=== PATIENT | female | born 1965 | race Caucasian/White ===

== ENCOUNTER 2017-08-31 11:44 | Day surgery (SDC) | payer BC ==
--- NOTE | 2017-08-31 09:52 | HP ---
DATE OF SURGERY: 08/31/2017 HISTORY OF PRESENT ILLNESS: The patient is a 52 year-old who has inflammation and pain right breast. Mammogram with suspicious density. Ultrasound question whether she had lipoma or other nodule. PAST MEDICAL HISTORY: Hypertension. 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 PAST SURGICAL HISTORY: Tubal and hysterectomy in the past. MEDICATIONS: Sertraline, atorvastatin, lamotrigine, clonazepam, lisinopril, cholesterol medication. ALLERGIES: NKDA. FAMILY HISTORY: Mom with breast cancer that started as a simple rash and aches that was quite aggressive according to the patient. Hypertension, breast cancer. SOCIAL HISTORY: No smoking or alcohol abuse. REVIEW OF SYSTEMS: Twelve systems reviewed per admission assessment. No chest pain or palpitations other systems negative or noncontributory as above and per preadmission questionnaire. PHYSICAL EXAMINATION: GENERAL: No acute distress. HEENT: Sclerae nonicteric. NECK: No JVD. CHEST: Equal excursion, nonlabored breathing. CVS: Regular rate and rhythm. ABDOMEN: Soft. No peritoneal signs. EXTREMITIES: No significant edema. NEURO: Alert, moving extremities symmetrically. No gross motor deficits noted. BREAST: Ultrasound at 2:00 position question whether was a 1 mm lipoma or density. IMPRESSION: Painful persistent right breast nodule of unclear etiology. Mammogram did not show any calcification or spiculated areas. Given the persistent palpable painful nodule and the patient's history of mother with very aggressive breast cancer and the patient is quite concerned and desires excisional biopsy for definitive path. She is having pain question whether simple lipoma removal could improve her aches and pains. Risks and benefits explained in detail including but not limited to bleeding or infection, risk of hematoma or seroma formation or infection possibly requiring packing; risk of aches, pains, burning or numbness. Risk of contour changes of the breast, risk of nipple areolar ischemia possibly requiring other procedures, risks of aches and pains, general risk of anesthesia, deep venous thrombosis, pulmonary embolism, pneumonia. She understands should this be malignant tissue she could have other procedures. She understands. Persistent painful solid nodule. I feel she would benefit from excisional biopsy but not limited to. She prefers this rather than consider prior needle biopsy.
[2017-08-31] MEDS ORDERED: DIPRIVAN 200 MG/20 ML IV ONE (11:45)
[2017-08-31] MEDS ORDERED: SUBLIMAZE 100 MCG/2 ML IV ONE (11:45)
[2017-08-31] MEDS ORDERED: TORAdol 30 mg Injection IV ONE (11:45)
[2017-08-31] MEDS ORDERED: Zofran 4 MG/2 ML VIAL IV ONE (11:45)
[2017-08-31] MEDS ORDERED: Decadron 4 MG INJ IV ONE (11:45)
[2017-08-31] MEDS ORDERED: Versed 2 MG/2 ML Injection IV ONE (11:45)
[2017-08-31] MEDS ORDERED: CEFAZOLIN 2 GM-D5W BAG** 2 GM/50 ML ML IV SCH (12:30)
[2017-08-31] MEDS ORDERED: Lactated Ringers 1,000 ML IV SCH (12:30)
[2017-08-31] MEDS ORDERED: SUBLIMAZE 100 MCG/2 ML ONE (15:11)
[2017-08-31] MEDS ORDERED: APRESOLINE 20 MG/ML INJ IV PRN ×2 (17:09)
[2017-08-31 18:26] VITALS: O2SAT 97
[2017-08-31 18:42] VITALS: BP 156/84; PULSE 96
--- NOTE | 2017-09-01 11:21 | OP ---
SURGERY DATE/TIME: 08/31/2017 1408 PREOPERATIVE DIAGNOSES: 1) Family history of aggressive breast cancer. 2) Persistent painful palpable density right breast in need of excision. POSTOPERATIVE DIAGNOSES: 1) Family history of aggressive breast cancer. 2) Persistent painful palpable density right breast in need of excision. PROCEDURE: Excisional biopsy right breast. SURGEON: Dr. Christiano Grimes. ANESTHESIA: General. ESTIMATED BLOOD LOSS: Minimal. INDICATIONS: As noted above. Risks and benefits explained in detail and not limited to and consent obtained. She has prior history of mom who with aggressive breast cancer. She had ultrasound and mammogram with suspicious calcification. Ultrasound showed question of lipomatous density. Discussed option of needle biopsy versus excision but as she is having pain whether due to lipomatous or other fibrocystic disease I felt this persistent density in this patient with strong family history of cancer wants excision per her preference for definitive path and treatment. DESCRIPTION OF PROCEDURE AND FINDINGS: The patient is seen in the preoperative holding area. The site was marked and confirmed with the patient. She was then taken to the operating room. General anesthesia introduced. The breast prepped and draped in usual sterile fashion. As this is right on the edge of areolar margin, a small incision around the edge of areolar margin was accomplished and extended out laterally. Dissection carried down to subcutaneous tissue and circumferentially around what seemed to be a lipomatous density on the outside. There appeared to be a thicker breast tissue right below it, this was also sent as part of the specimen. Whether this was just simple fibrocystic disease or lipomatous density on the outside either way the area was palpable. The specimen was passed off and marked at 12:00 with double tie and single tie at 3:00 position. The remainder of the wound was palpated. There were no other obvious densities palpable at this point just normal appearing breast parenchyma and surrounding subcutaneous fat and breast fat. Hemostasis controlled with pinpoint cautery. Good hemostasis noted. The deep parenchyma closed with 3-0 Vicryl, superficial subcu closed with 3-0 Vicryl, skin closed with 4-0 Vicryl. Steri-Strips and sterile dressing applied. 0.25% Marcaine local injected along the area. The patient tolerated the procedure well. There were no immediate complications. Findings discussed with the family out in the waiting area. She was transferred to the recovery room in stable condition. I will see her back in the office next week to go over the path results.
== END 2017-08-31 17:45 | disposition home or self-care (01) ==
LOC: SDC 11:44
PROVIDERS: ATTEND Surgery
PROC: 0HBT0ZX Excision of Right Breast, Open Approach, Diagnostic (ICD-10-PCS; principal; 2017-08-31)
DX: N63.0 Unspecified lump in unspecified breast (principal); Z80.3 Family history of malignant neoplasm of breast; N64.4 Mastodynia; I10 Essential (primary) hypertension
CPT/HCPCS: 00400; J0360; J0690; J1100; J1885; J2250; J2405; J2704; J3010

== ENCOUNTER 2019-03-28 10:53 | Day surgery (SDC) | payer BC ==
--- NOTE | 2019-03-28 08:10 | HP ---
DATE OF SURGERY: 03/28/2019 HISTORY OF PRESENT ILLNESS: The patient is a 53 year-old with no bloody stools. No change in bowel movements. No pain. No prior colonoscopy. Family history negative for colon cancer. She is in need of screening colonoscopy. PAST MEDICAL HISTORY: Hypertension, hyperlipidemia, some anxiety. PAST SURGICAL HISTORY: Includes breast biopsy, tonsillectomy, hysterectomy in the past. MEDICATIONS: Lamotrigine, amlodipine, atorvastatin, clonazepam, duloxetine, lisinopril. ALLERGIES: NKDA. FAMILY HISTORY: Negative for colon cancer. SOCIAL HISTORY: No alcohol abuse. REVIEW OF SYSTEMS: Fourteen systems reviewed per admission assessment. No chest pain or palpitations other systems negative or noncontributory as above and per preadmission questionnaire. PHYSICAL EXAMINATION: GENERAL: No acute distress. HEENT: Sclerae nonicteric. NECK: No JVD. CHEST: Equal excursion, nonlabored breathing. CVS: Regular rate and rhythm. ABDOMEN: Soft. No peritoneal signs. EXTREMITIES: No significant edema. NEURO: Alert, oriented, moving extremities symmetrically. No gross motor deficits noted. RECTAL: Deferred timed to endoscopy exam. IMPRESSION: Need for screening colonoscopy. I feel she is a candidate. She was shown the risk sheet, explained the procedure in detail but not limited to bleeding or infection, risk of bowel injury or perforation possibly requiring open procedure, risk of missed or nondiagnosis or incomplete exam possibly requiring barium enema, other studies or procedures, general risk of anesthesia or sedation but not limited to. She understands and agrees to the planned procedure and will proceed with outpatient screening colonoscopy.
[~2019-03-28 10:53] MED LIST: Lactated Ringers 1,000 ML IV SCH
[2019-03-28] MEDS ORDERED: Lactated Ringers 1,000 ML IV ONE (10:58)
[2019-03-28] MEDS ORDERED: DIPRIVAN 200 MG/20 ML IV ONE ×2 (12:03→13:22)
[2019-03-28] MEDS ORDERED: Ketamine HCl 50 MG/ML ONE (12:03)
[2019-03-28 14:14] VITALS: O2SAT 99
[2019-03-28 14:30] VITALS: BP 133/82; PULSE 70
--- NOTE | 2019-03-28 14:50 | OP ---
SURGERY DATE/TIME: 03/28/2019 1315 PREOPERATIVE DIAGNOSIS: Need for screening colonoscopy. POSTOPERATIVE DIAGNOSES: 1) Small early polyp versus hyperplastic lesion, raised lesion sigmoid colon. 2) Small internal and external hemorrhoids. 3) Very tortuous colon. 4) Fair bowel prep. PROCEDURES: 1) Colonoscopy to cecum. 2) Hot biopsy polypectomy removal of small raised lesions versus early polyps or hyperplastic lesion sigmoid colon. SURGEON: Dr. Christiano Grimes. ANESTHESIA: MAC. ESTIMATED BLOOD LOSS: Minimal. INDICATIONS: As noted above. Risks and benefits explained in detail but not limited to and consent obtained. DESCRIPTION OF PROCEDURE AND FINDINGS: The patient is taken to the endoscopy room. MAC anesthesia introduced. After official time out and no disagreement with planned procedure, digital rectal exam did not reveal rectal masses. She did have some small internal and external hemorrhoids. Video colonoscope inserted and passed up through the tortuous sigmoid, descending, transverse and ascending colon. She had a very tortuous colon requiring multiple staff members external pressure, placing on her back and the scope was finally able to be passed down the ascending colon to cecum. Appendiceal orifice and valve well visualized. On palpation of right lower quadrant and visualization of the light confirming location. Prep overall was fair leaning towards adequate with some semi-solid liquidy stool this was suction irrigated as well as possible but did limit the exam for very tiny lesions. The scope slowly and carefully withdrawn. There were no signs of any large polyps, masses or obstructing lesions. There was a small early polyp versus hyperplastic lesion versus raised lesion in the sigmoid colon removed with hot biopsy forceps and brief bursts of cautery. Good hemostasis noted. The scope was pulled back to the rectum. She had some small internal and external hemorrhoids. Again, a very tortuous colon, fair bowel prep, small raised lesions versus early polyps versus hyperplastic lesion removed with hot biopsy forceps. The patient tolerated the procedure well. There were no immediate complications. Findings discussed with the family out in the waiting area. Will see her back in the office in the next week or two to go over results. If path is benign likely given the tortuosity of her colon and slightly limited prep and small early polyp, likely recommend follow up colonoscopy in five years if the path report ends up being hyperplastic approximately three years if adenomatous. Ultimately determination final path results.
== END 2019-03-28 14:46 | disposition home or self-care (01) ==
LOC: SDC 10:53
PROVIDERS: ATTEND Surgery
DX: K63.5 Polyp of colon (principal); K63.9 Disease of intestine, unspecified; K64.4 Residual hemorrhoidal skin tags; K64.8 Other hemorrhoids; Q43.8 Other specified congenital malformations of intestine; I10 Essential (primary) hypertension; E78.5 Hyperlipidemia, unspecified; F41.9 Anxiety disorder, unspecified; Z79.899 Other long term (current) drug therapy
CPT/HCPCS: 88305; J2704

== ENCOUNTER 2019-06-24 07:15 | Emergency (ER) | payer BC ==
--- NOTE | 2019-06-24 07:16 | ERPHSYRPT ---
- History of Present Illness Time Seen by Provider: 06/24/19 07:16 Source: patient Exam Limitations: no limitations Occurred: just prior to arrival Reason for Fall: lost balance Injuries/Pain Location: back, pelvis (left), lower extremity (right ankle), lower Loss of Consciousness: no loss of consciousness Quality: sharpness, stabbing Severity of Pain-Max: moderate Severity of Pain-Current: moderate Modifying Factors: Improves With: movement Associated Symptoms (Fall): back pain, trouble walking Allergies/Adverse Reactions: No Known Drug Allergies Allergy (Verified 06/24/19 07:28) Home Medications: Atorvastatin Calcium [Lipitor] 10 mg PO DAILY 02/19/16 [History] Clonazepam 0.5 mg [Klonopin 0.5 MG] 0.25 mg PO BID 02/19/16 [History] Lisinopril 10 mg [Zestril 10 MG] 10 mg PO DAILY 02/19/16 [History] lamoTRIgine [Lamictal] 200 mg PO BID 02/19/16 [History] Amlodipine Besylate [Norvasc] 2.5 mg PO DAILY 03/16/19 [History] Duloxetine HCl [Cymbalta] 60 mg PO DAILY 03/16/19 [History] Multivitamin [Multivitamins] 1 each PO DAILY 03/18/19 [History] Hx Tetanus, Diphtheria Vaccination/Date Given: Yes Hx Influenza Vaccination/Date Given: Yes Hx Pneumococcal Vaccination/Date Given: No - Review of Systems Constitutional: No Symptoms Eyes: No Symptoms Ears, Nose, & Throat: No Symptoms Respiratory: No Symptoms Cardiac: No Symptoms Abdominal/Gastrointestinal: No Symptoms Genitourinary Symptoms: No Symptoms Musculoskeletal: Back Pain, Fall, Injury, Joint Pain, Joint Swelling (right ankle) Skin: No Symptoms Neurological: No Symptoms Psychological: No Symptoms Endocrine: No Symptoms Hematologic/Lymphatic: No Symptoms Immunological/Allergic: No Symptoms All Other Systems: Reviewed and Negative - Past Medical History Pertinent Past Medical History: Yes Neurological History: Seizures ENT History: No Pertinent History Cardiac History: High Cholesterol, Hypertension Respiratory History: No Pertinent History Endocrine Medical History: No Pertinent History Musculoskeletal History: No Pertinent History GI Medical History: No Pertinent History History: No Pertinent History Psycho-Social History: No Pertinent History Female Reproductive Disorders: No Pertinent History Other Medical History: last seizure--complex partial seizure--yesterday 08/30/17 - Past Surgical History Past Surgical History: Yes Neuro Surgical History: No Pertinent History Cardiac: No Pertinent History Respiratory: No Pertinent History Gastrointestinal: No Pertinent History Genitourinary: No Pertinent History Musculoskeletal: No Pertinent History Female Surgical History: Hysterectomy, Tubal Ligation Other Surgical History: tonsils - Social History Smoking Status: Never smoker Exposure to second hand smoke: No Drug Use: none Patient Lives Alone: No - Nursing Vital Signs Nursing Vital Signs: Initial Vital Signs Temperature 98.0 F 06/24/19 07:17 Pulse Rate 108 H 06/24/19 07:17 Blood Pressure 150/112 06/24/19 07:17 O2 Sat by Pulse Oximetry 99 06/24/19 07:17 Pain Scale Pain Intensity 6 - [place] Coma Score Best Eye Response (Freddy): (4) open spontaneously Best Verbal Response ([place]): (5) oriented Best Motor Response (Freddy): (6) obeys commands [place] Total: 15 - Physical Exam General Appearance: mild distress, alert, anxiety Head Injury: no evidence of injury, No Johns's Sign, No contusions, No raccoon eyes, No swelling, No tenderness Eye Exam: PERRL/EOMI, eyes nml inspection ENT Exam: airway nml, nml ext.inspection, No evidence of ENT injury Neck Exam: supple, trachea midline, full range of motion, normal alignment, normal inspection Respiratory/Chest Exam: No chest tenderness, No respiratory distress Gastrointestinal Exam: No tenderness Rectal Exam: not done Back Exam: normal inspection, normal range of motion, No muscle spasm (left lower lumbar level) Extremity Exam: pelvis stable, hip tenderness (left), swelling (right ankle) Neurologic Exam: alert, oriented x 3, cooperative, application engineer II-XII nml as tested, normal mood/affect, nml cerebellar function, sensation nml Skin Exam: normal color, warm, dry SpO2 Interpretation: normal O2 Delivery: Room Air - Course Nursing assessment & vital signs reviewed: Yes Ordered Tests: Active Orders 24 hr Category Date Time Status ANKLE (3 VIEWS) Stat Exams 06/24/19 07:21 Completed HIP UNI (2V) INCL PEL IF DONE Stat Exams 06/24/19 07:21 Completed LUMBAR LIMITED (2 OR 3 VIEWS) Stat Exams 06/24/19 07:21 Completed Medication Summary Discontinued Medications Generic Name Dose Route Start Last Admin Trade Name Jeff PRN Reason Stop Dose Admin Cyclobenzaprine HCl 10 mg 06/24/19 07:24 06/24/19 07:36 Cyclobenzaprine 10 Mg PO 06/24/19 07:25 10 mg STAT ONE Administration Cyclobenzaprine HCl Confirm 06/24/19 07:32 Cyclobenzaprine 10 Mg Administered 06/24/19 07:33 Dose 10 mg .ROUTE .STK-MED ONE Oxycodone/Acetaminophen 1 tab 06/24/19 07:22 06/24/19 07:35 Percocet Tablet 5/325mg PO 06/24/19 07:23 1 tab STAT STA Administration Oxycodone/Acetaminophen Confirm 06/24/19 07:32 Percocet Tablet 5/325mg Administered 06/24/19 07:33 Dose 1 tab .ROUTE .STK-MED ONE Prednisone 10 mg 06/24/19 07:23 06/24/19 07:36 Deltasone 10 Mg PO 06/24/19 07:24 10 mg STAT ONE Administration Prednisone Confirm 06/24/19 07:33 Deltasone 20 Mg Administered 06/24/19 07:34 Dose 20 mg .ROUTE .STK-MED ONE - Progress Progress: improved Progress Note: 06/24/19 08:50 xrays right ankle, lumbar, and left hip/pelvis-no acute fx or dislocation Counseled pt/family regarding: diagnosis, need for follow-up, rad results - Departure Departure Disposition: Home Clinical Impression: Fall, Contusion, Ankle sprain Condition: Stable Critical Care Time: No Referrals: NIKOLAS LIAO [Primary Care Provider] - Additional Instructions: ice pack 3 times daily for 2 days. follow up with primary doctor for persistent pain and swelling Prescriptions: Oxycodone HCl/Acetaminophen [Percocet 5-325 mg Tablet] 1 each PO Q12H PRN PRN # 6 tablet MDD 2 PRN Reason: Pain Cyclobenzaprine HCl 10 mg [Cyclobenzaprine 10 MG] 10 mg PO TID #10 tablet Prednisone 10 mg [Deltasone 10 mg] 10 mg PO BID #6 tablet
[2019-06-24] MEDS ORDERED: PERCOCET TABLET 5/325MG PO STA (07:22)
[2019-06-24] MEDS ORDERED: DELTASONE 10 MG PO ONE (07:23)
[2019-06-24] MEDS ORDERED: Cyclobenzaprine 10 MG PO ONE (07:24)
[2019-06-24] MEDS ORDERED: PERCOCET TABLET 5/325MG ONE (07:32)
[2019-06-24] MEDS ORDERED: Cyclobenzaprine 10 MG ONE (07:32)
[2019-06-24] MEDS ORDERED: DELTASONE 20 MG ONE (07:33)
--- NOTE | 2019-06-24 08:36 | XRAY ---
Indication: Pain following fall. Comparison: None 3 views of the right ankle demonstrates anterolateral soft tissue swelling. No other bony, articular, or soft tissue abnormalities.
--- NOTE | 2019-06-24 08:36 | XRAY ---
Indication: Pain following fall. Comparison: None AP pelvis and 2 views of the left hip obtained. No bony, articular, or soft tissue abnormalities.
--- NOTE | 2019-06-24 08:41 | XRAY ---
Indication: Pain following fall. Comparison: None 3 views of the lumbar spine demonstrates 5 lumbar vertebral segments with vertebral body heights/disc spaces maintained, minimal levoscoliosis, mild bilateral L5-S1 degenerative facet hypertrophy, calcified hepatic/splenic granulomas, and 2 cm left renal calculus. No other bony, articular, or soft tissue abnormalities.
[2019-06-24 09:07] VITALS: BP 150/87
[2019-06-24 09:27] VITALS: PULSE 72; O2SAT 98
== END 2019-06-24 09:27 | disposition home or self-care (01) ==
LOC: ED 07:15
DX: S93.401A Sprain of unspecified ligament of right ankle, initial encounter (principal); W01.0XXA Fall on same level from slipping, tripping and stumbling without subsequent striking against object, initial encounter; M25.571 Pain in right ankle and joints of right foot; I10 Essential (primary) hypertension; Z79.899 Other long term (current) drug therapy
CPT/HCPCS: 72100; 73502; 73610; 99284; A9270-GY